=== PATIENT | male | born 1945 | race Caucasian/White ===

== ENCOUNTER → 2016-10-20 | Outpatient (CLI) | payer OTHER ==
[2014-01-17 10:00] VITALS: BP 138/89
--- NOTE | 2016-10-20 11:17 | MRI ---
HISTORY: Low back pain, right radiculopathy Study: MRI lumbar spine without contrast Comparison: None Technique: Multiplanar multi-sequence MRI of the lumbar spine was obtained. Sagittal T1, sagittal T 2, and stir weighted images, axial T1, and axial T2 images were obtained. Findings: The lumbar spine demonstrates normal alignment with the expected signal characteristics of the bone marrow with the exception of signal abnormalities in the left pedicle of T12 and the L3 vertebral suze dy. It is possible that these represent atypical hemangiomatous change however nuclear medicine bone scan with SPECT is recommended for further evaluation and to exclude a metastatic process. The conu s of the cord terminates normally. T12 -- L1: No evidence for compressive disc disease. The neural foramina are patent. The joints are normal. L1 -- L2: No evidence for compressive disc disease. The neural foramina are patent. The joints are n ormal. L2 -- L3: Broad-based disk bulging effaces the thecal sac and contributes along with facet arthropat hy and pedicular shortening to lateral recess and foraminal narrowing bilaterally worse on the left than the right. L3 -- L4: Broad-based disc protrusion contributes along with pedicular shortening, ligamentous hyper trophy and facet arthropathy to a significant spinal stenosis with marked lateral recess and foramin al narrowing bilaterally. L4 -- L5: Mild broad-based disk bulging effaces the thecal sac . There is a focal rightward disc pro trusion which causes significant right-sided lateral recess and foraminal narrowing. The broad-based disc protrusion contributes to lateral recess and foraminal narrowing on the left not quite as harjeet re. L5 -- S1: No evidence for compressive disc disease. The neural foramina are patent. IMPRESSION: Un usual areas of abnormal signal in the left pedicle of T12 and the L3 vertebral body which could r epresent atypical hemangiomatous change however nuclear medicine bone scan with SPECT if possible is recommended in order to exclude a more significant active process such as metastatic disease. Evaluation of each disc level described in detail above Reported By:
== END ==
LOC: RAD 09:30
PROVIDERS: ATTEND Internal Medicine
DX: M54.5 Low back pain (principal); M25.551 Pain in right hip; M51.06 Intervertebral disc disorders with myelopathy, lumbar region
CPT/HCPCS: 72148